=== PATIENT | female | born 1995 | race Caucasian/White ===

== ENCOUNTER 2019-03-08 15:26 | Emergency (ER) | payer SELFPAY ==
--- NOTE | 2019-03-08 15:40 | NUR ---
Security called to assist with obtaining pt belongings. Pt became violent, kicking & screaming increased. Placed in 4 point restraints.
[2019-03-08] MEDS ORDERED: HALOPERIDOL 5 MG/ML ONE (15:43)
--- NOTE | 2019-03-08 15:50 | NUR ---
Pt medicated with IM haldol. Placed on continuous pulse oximetry. Screaming continues- unable to verbally redirect.
[2019-03-08] MEDS ORDERED: PLEASE ENTER ALLERGIES MC SCH (16:00)
[2019-03-08] MEDS ORDERED: HALOPERIDOL 5 MG/ML IM ONE (16:00)
--- NOTE | 2019-03-08 16:00 | NUR ---
Pt continues to scream, direct 1:1 visualization by sitter.
[2019-03-08 16:08] VITALS: BP 126/91
--- NOTE | 2019-03-08 16:41 | NUR ---
Awakens to V. No recollection of events of past few hrs. Denies SI or HI. Security called to remove restraints.
--- NOTE | 2019-03-08 16:58 | NUR ---
Meal tray given, sleepy but cooperative.
--- NOTE | 2019-03-08 17:15 | NUR ---
Legal hold decertified. Will wait to d/c until pt is more awake.
--- NOTE | 2019-03-08 18:21 | NUR ---
Sleeping, awakens to V. Ambulation trial, steady on feet.
--- NOTE | 2019-03-08 18:35 | NUR ---
List of shelters provided. Declines offer of cab voucher to jail. Amb w steady gait. Verb. understanding of d/c instructions.
== END 2019-03-08 18:38 | disposition home or self-care (01) ==
LOC: ED 18:32
DX: F15.122 Other stimulant abuse with intoxication with perceptual disturbance (principal); F22 Delusional disorders
CPT/HCPCS: 96372; 99284; J1630; 99283

== ENCOUNTER 2019-03-17 10:46 | Emergency (ER) | payer SELFPAY ==
[~2019-03-17] VITALS: Ht 152.4 cm; Wt 43.4 kg
[2019-03-17 13:51] VITALS: BP 143/71
== END 2019-03-17 14:34 | disposition home or self-care (01) ==
LOC: ED 14:25
DX: A57 Chancroid (principal); B00.9 Herpesviral infection, unspecified
CPT/HCPCS: 36415; 80053; 81001; 84703; 85025; 86592; 87086; 87491; 87591; 96372; 99284; J0696; 86780